=== PATIENT | female | born 1955 ===

== ENCOUNTER 2017-08-25 05:37 | Inpatient (IN) | payer OTHER ==
[~2017-08-25] VITALS: Ht 165.1 cm; Wt 72.6 kg
[2017-08-25] VITALS (14 sets, daily range): BP systolic 85–117; BP diastolic 46–76
[~2017-08-25 05:37] MED LIST: CALCIUM500 M2 PO; FISH OIL CAP1000 MG ORAL; PENNSAID112 GM TP; SERTRALINE HCL50 MG ORAL; TRAMADOL HCL50 MG ORAL; VITAMIN C500 M1 ORAL; VITAMIN D5000 UNI2 PO
[2017-08-25] MEDS ORDERED: NORCO 5-325 TA1 EAC1 ORAL (06:25)
[2017-08-25] MEDS ORDERED: Thrombin 5000 units TOPIC ONE (06:39)
[2017-08-25] MEDS ORDERED: Heparin 5000 units/ml inj ONE (06:39)
[2017-08-25] MEDS ORDERED: Surgicel 4in x 8in TOPIC ONE (06:39)
[2017-08-25] MEDS ORDERED: Lacri-Lube Opth Oint 3.5gm ONE (06:39)
[2017-08-25] MEDS ORDERED: Bupivacaine 0.5% Inj 30 ml vial INJ ONE (06:40)
[2017-08-25] MEDS ORDERED: Bacitracin 50000 Units Vial ONE (06:40)
[2017-08-25] MEDS ORDERED: Vancomycin 1gm inj IVPB ONE ×2 (06:40→12:03)
[2017-08-25] MEDS ORDERED: Ropivacaine 5mg/ml Vial 30ml INJ ONE (06:40)
[2017-08-25] MEDS ORDERED: EPINEPHrine 1mg/1ml Amp ONE (06:41)
[2017-08-25] MEDS ORDERED: Vancomycin 1 GM in D5W 275 ML IVPB ONE (07:00)
--- NOTE | 2017-08-25 07:06 | Pre-Procedure Note/Attestation ---
Pre-Procedure Note/Attestation Complete Prior to Procedure Planned Procedure: not applicable Procedure Narrative: Stage 1 Anterior Lumbar interbody fusion of L45 and L5S1 with allograft and bmp Stage 2 Posterior ferrera laminectomy/humphrey ferguson osteotomy with pedicle screw fixation L45S1 Indications for Procedure Pre-Operative Diagnosis: Herniation and back pain L45,5S1 Attestation I attest that I discussed the nature of the procedure; its benefits; risks and complications; and alternatives (and the risks and benefits of such alternatives ), prior to the procedure, with the patient (or the patient's legal publications sales representative). I attest that, if there was a reasonable possibility of needing a blood transfusion, the patient (or the patient's legal publications sales representative) was given the [place] [facility] [employer] [facility] standardized written summary, pursuant to the [place] Blood Safety Act ([place] Health and Safety Code # 1645, as amended). I attest that I re-evaluated the patient just prior to the surgery and that there has been no change in the patient's H&P, except as documented below: MARIYA GROSSMAN Aug 25, 2017 07:06
--- NOTE | 2017-08-25 07:08 | Brief Operative Note ---
Immediate Post Operative Note Operative Note Chief Complaint: Back pain and radiculopathy Pre-op Diagnosis: Herniation and back pain L45,5S1 Procedure: Stage 1 Anterior Lumbar interbody fusion of L45 and L5S1 with allograft and bmp Stage 2 Posterior ferrera laminectomy/humphrey ferguson osteotomy with pedicle screw fixation L45S1 Post-op Diagnosis: same as pre-op Findings: consistent w/pre-op dx studies Surgeon: Savannah Dental Laboratory Assistant: Tyree Additional Surgeons: Kingston Anesthesiologist: Haylee Anesthesia: general Specimen: none Complications: none Condition: stable Estimated Blood Loss: volume - 200 Drains: none - Nuvasive Peek brigade sz 14, Synthes pedicle screws x6 45mm Implant(s) used?: Yes MARIYA GROSSMAN Aug 25, 2017 07:08
[2017-08-25] MEDS ORDERED: Norco 7.5mg/325mg tab ORAL PRN ×2 (07:15)
[2017-08-25] MEDS ORDERED: Milk of Magnesia 30ml Ud ORAL PRN (07:15)
[2017-08-25] MEDS ORDERED: Metoclopramide 10mg/2ml Inj IVP PRN ×2 (07:15→10:45)
[2017-08-25] MEDS ORDERED: HYDROmorphone 1mg/ml Carpuject SUBQ PRN (07:15)
[2017-08-25] MEDS ORDERED: Naloxone 0.4mg/ml Inj IVP PRN ×2 (07:15→12:30)
[2017-08-25] MEDS ORDERED: Norco 5mg/325mg tab ORAL PRN (07:15)
[2017-08-25] MEDS ORDERED: HYDROmorphone 1mg/ml Carpuject IVP PRN (07:15)
[2017-08-25] MEDS ORDERED: Chloraseptic Spray 20mL Bottle ORAL PRN (07:15)
--- NOTE | 2017-08-25 08:24 | Anethesia Preoperative Eval ---
Anesthesia Pre-op PMH/ROS General Date of Evaluation: Aug 25, 2017 Time of Evaluation: 06:58 Anesthesiologist: Garrett ASA Score: ASA 2 Mallampati Score Class I : Soft palate, uvula, fauces, pillars visible Class II: Soft palate, uvula, fauces visible Class III: Soft palate, base of uvula visible Class IV: Only hard plate visible Mallampati Classification: Class II Surgeon: Savannah Diagnosis: Lumbar radiculopathy Surgical Procedure: Anterrior and posterior lumbar inrerbody fusion L4-L5 L5-S1 Anesthesia History: none Social History: smoking - h/o Family History: no anesthesia problems Allergies: Coded Allergies: PENICILLINS (Verified Allergy, Severe, 03/10/16) SKIN RASH Past Medical History Cardiovascular: Denies: HTN, CAD, ID, valve dz, arrhythmia, other Pulmonary: Denies: asthma, COPD, THERESE, other Gastrointestinal/Genitourinary: Reports: GERD, Denies: CRI, ESRD, other Neurologic/Psychiatric: Reports: depression/anxiety, other - chronic pain, Denies: dementia, CVA, TIA Endocrine: Denies: DM, hypothyroidism, steroids, other HEENT: Denies: cataract (L), cataract (R), glaucoma, S[place]ONGA (L), SAVOONGA (R), other Hematology/Immune: Denies: anemia, DVT, bleeding disorder, other Musculoskeletal/Integumentary: Reports: DJD, other - osteoporosis, Denies: OA, RA, DDD, edema PMH Narrative: as above PSxH Narrative: BTL ACDF Anesthesia Pre-op Phys. Exam Physician Exam Last Vital Signs Date Time Temp Pulse Resp B/P (MAP) Pulse Ox O2 Delivery O2 Flow Rate FiO2 08/25/17 07:31 97.0 71 18 117/76 97 Room Air Constitutional: NAD Neurologic: CN 2-12 intact Cardiovascular: RRR, no M/R/G Respiratory: CTA Gastrointestinal: S/NT/ND Airway Exam Mallampati Score: Class II MO: limited Neck: stiff ROM: limited Teeth: missing Dentures: no upper, no lower Anesthesia Pre-op A/P Labs see chart Studies Pre-op Studies: EKG - NSR, CXR - WNL Risk Assessment & Plan Assessment: ASA 2 . In nose smear done as a part of preoperative workout was a significant grow of MRSA culture sensitive to multiple antibiotics vancomycin included, patient will receive 2 doses of antibiotic at the beginning and the end of surgery. Surgeon is aware and confirmed. this order. Plan: GA with ETT supine and prone position neuro monitoring PONV prevention. Status Change Before Surgery: No Pre-Antibiotics Drug: Vancomycin 1 gr. Given Within 1 Hr of Incision: Yes Time Given: 08:10 LYNDON ALONZO M.D. Aug 25, 2017 08:24
[2017-08-25] MEDS: Docusate 100mg cap ORAL SCH (09:00)
[2017-08-25] MEDS ORDERED: LR 1000ml 1,000 ML IVLG SCH (10:38)
[2017-08-25] MEDS ORDERED: Hydromorphone 0.5mg/0.5ml inj IVP PRN (10:45)
[2017-08-25] MEDS ORDERED: DiphenhydrAMINE 50mg/ml Inj IVP PRN ×2 (10:45→14:45)
[2017-08-25] MEDS ORDERED: Midazolam 2mg/2ml Inj IVP PRN (10:45)
[2017-08-25] MEDS ORDERED: Meperidine 50mg/ml Inj(FOR RIGORS ONLY) IV PRN (10:45)
[2017-08-25] MEDS ORDERED: Ketorolac 30mg Inj IV PRN (10:45)
[2017-08-25] MEDS ORDERED: Acetaminophen (Non formulary) 100 ML IV ONE (12:00)
--- NOTE | 2017-08-25 14:24 | Diagnostic Imaging Report ---
Indication: Back pain Comparison: None Findings: Fluoroscopic views of the lumbar spine were obtained. 13 fluoroscopically obtained images of the lower lumbar spine during surgery. Localization followed by anterior fusion followed by posterior fusion L4-S1 noted. Impression: Intraoperative imaging
--- NOTE | 2017-08-25 14:35 | Immediate Post-Op Evaluation ---
Immediate Post-Op Evalulation Immediate Post-Op Evalulation Procedure: Anterior and posterior lumbar fusion L4-L5-S1 Date of Evaluation: Aug 25, 2017 Time of Evaluation: 14:35 IV Fluids: 2000 Blood Products: none Estimated Blood Loss: 200 Urinary Output: 300 Blood Pressure Systolic: 105 Blood Pressure Diastolic: 58 Pulse Rate: 98 Respiratory Rate: 20 O2 Sat by Pulse Oximetry: 99 Temperature (Fahrenheit): 98.5 Pain Score (1-10): 2 Nausea: No Vomiting: No Complications none Patient Status: reacts, patent, extubated, none Hydration Status: adequate LYNDON ALONZO M.D. Aug 25, 2017 14:35
[2017-08-25] MEDS ORDERED: LORazepam 1mg tab ORAL PRN ×3 (14:45→15:00)
[2017-08-25] MEDS ORDERED: PCA HYDROmorphone 1mg/ml 30 ML IV PRN (14:45)
[2017-08-25] MEDS ORDERED: PCA Education Pamphlet MISC ONE (14:45)
[2017-08-25] MEDS ORDERED: Rate Change PCA 1 Each MISC PRN (14:45)
[2017-08-25] MEDS: PCA HYDROmorphone 1mg/ml 30 ML IV PRN (16:14)
--- NOTE | 2017-08-25 16:15 | Operative Note - Dictated ---
DATE OF OPERATION: 08/25/2017 OPERATIONS: 1. Muscle sparing anterior abdominal retroperitoneal approach for anterior lumbar interbody fusions (two levels). 2. Mobilization of the left iliac artery and aorta. 3. Mobilization of the left iliac vein and ligation of iliolumbar vein. 4. Plastic closure repair of abdominal wound. CO-SURGEONS: 1. Rasheed Clements M.D. 2. Parish Nuñez M.D. ANESTHESIA: General. PREOPERATIVE DIAGNOSIS: Lumbar herniated disks, L4 to S1. POSTOPERATIVE DIAGNOSIS: Lumbar herniated disks, L4 to S1. DESCRIPTION OF PROCEDURE: Prior to surgery, the patient had received my separate informed consent form, which introduced me and explained my role in the approach for the anterior lumbar spine surgery. It also outlined the possible risks and complications, including, but not limited to hemorrhage, need for blood transfusions, wound infection, bowel or ureter injury, arterial or venous injury or thrombosis, and the remote chance of , etc. The patient read the form, signed it, and brought it back to the hospital with her today. Today, she was seen in the preoperative holding area with her son-in-law in attendance and the contents of the form were reviewed and any questions were answered. She was shown the site of the incision. She had palpable bilateral dorsalis pedis pulses. That consent was signed once again with a nurse witness and signature as well and then placed into the chart. She fully understood and wished to proceed. A preoperative vascular surgery consultation report was dictated. The patient was taken into the operating room and placed in the supine position. Using an endotracheal tube, she was placed under general anesthesia without difficulty. Her abdomen was prepped and draped in the usual sterile manner. An appropriate time-out was obtained. An oblique incision was made in the left lower quadrant beginning in the low midline and carried down through the subcutaneous tissues down to the rectus fascia. Hemostasis was achieved using electrocautery. The rectus fascia was incised with extension into the fibers of the external oblique aponeurosis. Elevation of the rectus fascia away from the anterior surface of the muscle was then carried out for a distance of approximately 4 cm cephalad. This would allow for retraction of the rectus muscle laterally in order to obtain direct anterior-posterior approach to the anterior surface of the spine. The inferior epigastric vessels were identified and preserved. The posterior fascia was then incised and carefully from the peritoneum. Laterally, the retroperitoneal space was entered down to the left psoas muscle. The left ureter was identified and protected as it was mobilized with the peritoneum more medially into the left iliac artery was identified. Deep self-retaining retractors such as [place] and [place] were utilized to hold the abdominal wall and peritoneal contents in place while further dissection was carried out. The left iliac artery was now mobilized for its entire length throughout the junction with the aorta. Deeper dissection revealed the common iliac vein, which was mobilized down to its iliolumbar branch. This branch was ligated using #0 silk with hemoclips placed and transected. Any other venous tributaries in the area were controlled with hemoclips and transected. This allowed for mobilization of the iliac vessels both anteriorly and to the right to allow proper visualization of the anterior surface of the spine. Segmental vessels lying along the anterior surface of the spine were taken between hemoclips and transected. Attention was directed below the bifurcation of the iliac vessels with several medial branches of the iliac vein were taken between hemoclips and transected. The middle sacral artery was taken between hemoclips and transected. Careful blunt dissection was carried out to preserve the sympathetic chains laterally as well as the parasympathetic plexus which lies anteriorly along the surface of the fifth lumbar vertebra. Further careful blunt dissection was utilized to expose the anterior surface of the multiple vertebral bodies and intervening multiple disc spaces. Several malleable retractor blades were now placed in all quadrants with the rectus muscle retracted laterally which allowed exposure and direct anterior-posterior approach to the anterior surface of the spine. A needle was inserted into the appropriate disc space and an x-ray was taken to verify the exposure. The spine surgeon then proceeded to perform diskectomy and fusion at the multiple levels, which will be dictated in a separate report by the spine surgeon, Dr. Nuñez. Antibiotic irrigation had been carried out. The malleable retractors were removed. The integrity of the iliac vessels were then checked to make sure that there was no tear or thrombosis of the vein and that there was adequate flow through the artery with no evidence of spasm or thrombosis. A further check for hemostasis was made and the integrity of the ureter was verified. The peritoneum was allowed to return to its anatomical location and the posterior sheath approximated using continuous running suture of 2-0 Vicryl. The anterior rectus sheath was approximated using #1 Vicryl. The subcutaneous tissues were irrigated using dilute Betadine solution as well as antibiotic solution and hemostasis noted to be achieved. Plastic closure repair of the abdominal wound was continued using 2-0 Vicryl followed by skin approximation using continuous subcuticular suture of 3-0 Monocryl. Steri-Strips were applied. Dry sterile gauze OpSite dressings were applied. The sponge, pad, needle, and instrument counts reported as correct. Estimated blood loss was 50 mL. There were no complications during this procedure. At completion of this part of the procedure, the patient had maintenance of strong palpable bilateral dorsalis pedis pulses and the pulse oximeter registered 100% on the left foot. The patient will remain in the operating room to undergo posterior instrumentation by the spine surgeon. Rasheed Clements M.D. DR: ADILIA JOB#: [id number] CC:
--- NOTE | 2017-08-25 16:45 | Consultation ---
DATE OF CONSULTATION: 08/25/2017 VASCULAR SURGERY CONSULTATION CONSULTING PHYSICIAN: Rasheed Clements M.D. HISTORY OF PRESENT ILLNESS: The patient is a 62-year-old female, who was admitted to undergo anterior lumbar interbody fusion of L4-S1 as determined by her spine surgeon, Dr. Parish Nuñez. Prior to today, the patient had received at her home my separate informed consent form, which introduced me and explained my role in the approach for the anterior lumbar spine surgery. It also outlined the possible risks and complications, including, but not limited to hemorrhage, need for blood transfusions, wound infection, bowel or ureter injury, arterial or venous injury or thrombosis, and the remote chance of , etc. The patient read the form, signed it, and brought her back to the hospital with her today. Today, she was seen in the preoperative holding area with her son-in-law in attendance and the contents of the form were reviewed and any questions were answered. She was shown the site anxiety of the incision. She had palpable bilateral dorsalis pedis pulses. She was 5 feet 5 inches tall, weighing approximately 162 pounds giving her a BMI of 27. Her hematocrit was 41 with a platelet count of 249,000. Her INR was 0.94 with a PTT of 27 seconds. That consent was signed once again with a nurse witness and signature as well, and then placed into the chart. She fully understood and wished to proceed. There were no contraindications and we would proceed with the proposed operation. Rasheed Clements M.D. DR: DORIS JOB#: [id number] CC:
[2017-08-25] MEDS: PCA shift volume MISC SCH (19:00)
[2017-08-25] MEDS: Dexamethasone 4mg/ml vial IVP SCH (20:25)
[2017-08-25] MEDS: NS w/KCl 20mEq 1,000 ML IV SCH (20:25)
[2017-08-26 00:18] VITALS: BP 97/63
[2017-08-26 04:00] VITALS: BP 93/59
[2017-08-26] MEDS: NS w/KCl 20mEq 1,000 ML IV SCH ×2 (05:47→17:36)
[2017-08-26] MEDS: PCA shift volume MISC SCH ×2 (07:00→19:01)
[2017-08-26] MEDS: Dexamethasone 4mg/ml vial IVP SCH ×3 (07:25→12:04)
[2017-08-26 08:00] VITALS: BP 101/58
[2017-08-26] MEDS: Docusate 100mg cap ORAL SCH ×3 (09:00→17:36)
[2017-08-26 12:49] VITALS: BP 103/59
--- NOTE | 2017-08-26 13:30 | Consultation ---
History of Present Illness General Date patient seen: Aug 26, 2017 Time patient seen: 13:29 Chief Complaint: Intractable back pain and radiculopathy Referring physician: Dr. Nuñez Reason for Consultation: susan klein Present Illness HPI 62y/o female with pmh of intractable back pain 2/2 lumbar disc herniation who is now s/p stage 1 Anterior Lumbar interbody fusion of L45 and L5S1 with allograft and bmp Stage 2 Posterior ferrera laminectomy/humphrey ferguson osteotomy with pedicle screw fixation L45S1 yesterday POD#1. Postop pain appears well controlled. Denies f/c, n/v, d/c, chest pain, SOB, abd pain. Allergies: Coded Allergies: PENICILLINS (Verified Allergy, Severe, 03/10/16) SKIN RASH Medication History Scheduled Ascorbic Acid* (Vitamin C*), 500 MG ORAL DAILY, (Reported) Calcium Carbonate (Calcium), 500 MG PO BID, (Reported) Cholecalciferol (Vitamin D3) (Vitamin D), 5,000 UNIT PO 2XW, (Reported) Fish Oil (Fish Oil 1,000 mg Capsule), 1,000 MG ORAL DAILY, (Reported) Scheduled PRN Hydrocodone Bit/Acetaminophen 10-325* ([place] 10-325*), 1 TAB ORAL Q8HR PRN for For Pain, (Reported) Hydrocodone Bit/Acetaminophen 5-325* ([place] 5-325 Tablet*), 1 TAB ORAL Q4H PRN for For Pain, (Reported) Discontinued Medications Diclofenac Sodium (Pennsaid), 112 GM TP NEEDED, (Reported) Discontinued Reason: Pt stopped taking med Sertraline Hcl* (Zoloft*), 50 MG ORAL DAILY, (Reported) Discontinued Reason: Pt stopped taking med Patient History History Provided By: Patient, Medical Record Healthcare decision maker N Resuscitation status Full Code Advanced Directive on File No Past Medical/Surgical History Past Medical/Surgical History: (1) Anxiety (2) Lumbar disc herniation Family History Family History: (1) Family history in first degree relatives is unremarkable Social History Social History: (1) No significant social history Review of Systems Constitutional: Reports: no symptoms Eye: Reports: no symptoms ENT: Reports: no symptoms Respiratory: Reports: no symptoms Cardiovascular: Reports: no symptoms Gastrointestinal: Reports: no symptoms Genitourinary: Reports: no symptoms Musculoskeletal: Reports: joint pain, muscle pain Skin: Reports: no symptoms Psychiatric: Reports: no symptoms Neurological: Reports: no symptoms Endocrine: Reports: no symptoms Hematologic/Lymphatic: Reports: no symptoms All Other Systems: negative except mentioned in HPI Physical Exam Physical Exam Narrative General: alert, cooperative, no distress, appears stated age Head: normocephalic, without obvious abnormality, atraumatic Eyes: conjunctivae/corneas clear. PERRL, EOM's intact Throat: lips, mucosa, and tongue normal. MMM Neck: supple, symmetrical, trachea midline, and no JVD Lungs: clear to auscultation bilaterally Heart: regular rate and rhythm, S1, S2 normal, no murmur, click, rub or gallop Abdomen: soft, non-tender, non-distended, bowel sounds normal; no masses or organomegaly Extremities: extremities normal, atraumatic, no cyanosis or edema Pulses: 2+ and symmetric Skin: skin color, texture, turgor normal; no rashes or lesions Dressing c/d/i Neurologic: grossly normal, no focal deficits Last 24 Hour Vital Signs Date Time Temp Pulse Resp B/P (MAP) Pulse Ox O2 Delivery O2 Flow Rate FiO2 08/26/17 12:49 98.0 85 20 103/59 97 Room Air 08/26/17 12:00 18 08/26/17 08:00 18 08/26/17 08:00 98.0 93 18 101/58 95 Room Air 08/26/17 04:00 97.8 83 18 93/59 97 Room Air 08/26/17 04:00 18 08/26/17 00:18 97.6 79 19 97/63 94 Nasal Cannula 4.0 08/26/17 00:00 18 08/25/17 20:41 97.2 85 19 98/60 100 Room Air 08/25/17 20:00 18 08/25/17 18:35 17 08/25/17 17:45 97.0 73 16 100/60 98 Nasal Cannula 4.0 08/25/17 17:35 16 08/25/17 17:05 16 08/25/17 16:50 16 08/25/17 16:45 97.0 91 17 104/61 97 Nasal Cannula 4.0 08/25/17 16:30 97.2 86 17 107/54 100 Nasal Cannula 3.0 08/25/17 16:30 16 08/25/17 16:15 85 14 105/52 100 Nasal Cannula 3.0 08/25/17 16:15 18 08/25/17 16:00 14 08/25/17 16:00 90 15 101/50 100 Nasal Cannula 3.0 08/25/17 15:45 82 17 95/53 100 Nasal Cannula 3.0 08/25/17 15:45 16 08/25/17 15:30 91 15 98/50 100 Nasal Cannula 3.0 08/25/17 15:15 92 14 92/52 100 Nasal Cannula 3.0 08/25/17 15:00 88 17 90/54 100 Simple Mask 6.0 08/25/17 14:45 89 13 85/50 100 Simple Mask 6.0 08/25/17 14:35 98 20 99 08/25/17 14:30 97 15 86/52 100 Simple Mask 6.0 08/25/17 14:25 99.0 110 22 98/46 100 Simple Mask 6.0 Intake and Output 08/26/17 08/27/17 19:00 07:00 Intake Total 840 ml Balance 840 ml Intake Oral 240 ml IV Total 600 ml Height (Feet): 5 Height (Inches): 5.00 Weight (Pounds): 160 Medications Current Medications Medications (Trade) Dose Ordered Sig/Freddy Route PRN Reason Start Time Stop Time Status Last Admin Dose Admin Acetaminophen (Tylenol) 650 mg Q4H PRN ORAL headache or temp>101 08/25/17 07:15 09/24/17 07:14 Carisoprodol (Soma) 350 mg TIDPRN PRN ORAL SPASM 08/25/17 07:15 09/24/17 07:14 08/26/17 04:19 Cetylpyridinium Chloride (Cepacol) 1 lozenge EVERY 2 HOURS PRN LENNOX To Patient Comfort 08/25/17 07:15 09/24/17 07:14 Diphenhydramine HCl (Benadryl) 25 mg Q6H PRN IVP Itching/Pruritis 08/25/17 14:45 08/27/17 14:44 Docusate Sodium (Colace) 100 mg TWICE A DAY ORAL 08/25/17 09:00 09/24/17 08:59 08/26/17 09:06 Hydromorphone HCl 30 ml @ 0 mls/hr Q24H PRN IV For Pain 08/25/17 15:00 08/27/17 14:59 08/25/17 16:14 Hydromorphone HCl (Dilaudid) 1 mg Q2H PRN IVP Moderate Pain (Pain Scale 4-6) 08/25/17 14:45 08/27/17 14:44 Hydromorphone HCl (Dilaudid) 2 mg Q3H PRN SUBQ Severe Pain (Pain Scale 7-10) 08/25/17 15:00 08/27/17 14:59 08/26/17 05:38 Lorazepam (Ativan) 1 mg Q4H PRN ORAL Muscle Spasm 08/25/17 14:45 08/27/17 14:44 Magnesium Hydroxide (Mom) 30 ml QIDPRN PRN ORAL Constipation 08/25/17 07:15 09/24/17 07:14 Metoclopramide HCl (Reglan) 10 mg Q6H PRN IVP Nausea & Vomiting 08/25/17 07:15 09/24/17 07:14 Miscellaneous Medication (BARISTA Rate Change) 1 ea DAILYPRN PRN MISC rate change 08/25/17 14:45 08/27/17 14:44 Miscellaneous Medication (BARISTA shift volume) 1 ea Q12HR@0700,1900 MISC 08/25/17 19:00 08/27/17 18:59 08/26/17 07:00 Naloxone HCl (Narcan) 0.1 mg Q1M PRN IVP RR<10/min OR SBP<90 mmHg 08/25/17 12:30 08/27/17 12:29 Ondansetron HCl (Zofran) 4 mg Q6H PRN IVP Nausea & Vomiting 08/25/17 14:45 08/27/17 14:44 Phenol/Menthol (Chloraseptic) 1 spray Q3H PRN ORAL Patient Comfort for Sore Throa 08/25/17 07:15 09/24/17 07:14 Prochlorperazine (Compazine) 10 mg Q6H PRN IVP Nausea & Vomiting 08/25/17 07:15 09/24/17 07:14 Sodium Chloride 1,000 ml @ 100 mls/hr Q10H IV 08/25/17 20:00 09/24/17 19:59 08/26/17 05:47 Temazepam (Restoril) 7.5 mg HSPRN PRN ORAL Insomnia 08/25/17 14:45 08/27/17 14:44 Assessment/Plan Problem List: (1) Lumbar disc herniation ICD Codes: M51.26 - Other intervertebral disc displacement, lumbar region SNOMED: 281428968 (2) Anxiety ICD Codes: F41.9 - Anxiety disorder, unspecified SNOMED: 02738460 Status: stable Assessment/Plan Appreciate surgery rec's s/p stage 1 Anterior Lumbar interbody fusion of L45 and L5S1 with allograft and bmp Stage 2 Posterior ferrera laminectomy/humphrey ferguson osteotomy with pedicle screw fixation L45S1 on 08/25/17 Post operative recommendations include: - encourage mobilization/ambulation - encourage incentive spirometry to optimize pulmonary hygiene - DVT/GI prophylaxis as appropriate--SCDs - PT/OT - pain control, supportive care, bowel regimen - DC planning D/w pt, RN, SW/CM, surgery regarding mgmt and dispo Keith Cabrera M.D. Aug 26, 2017 13:30
[2017-08-26 16:00] VITALS: BP 99/63
[2017-08-26 20:45] VITALS: BP 93/59
[2017-08-26] MEDS: PCA HYDROmorphone 1mg/ml 30 ML IV PRN (21:32)
[2017-08-27 00:21] VITALS: BP 114/67
[2017-08-27] MEDS: NS w/KCl 20mEq 1,000 ML IV SCH (02:00)
[2017-08-27 04:41] VITALS: BP 101/66
[2017-08-27] MEDS ORDERED: Neostigmine 1mg/ml 10ml Inj ONE (07:00)
[2017-08-27] MEDS ORDERED: Zemuron 50mg/5ml Inj IV ONE (07:00)
[2017-08-27] MEDS ORDERED: Propofol 200mg/20ml IV ONE (07:00)
[2017-08-27] MEDS ORDERED: NS Irrig 1000ml ONE (07:00)
[2017-08-27] MEDS ORDERED: Midazolam 2mg/2ml Inj ONE ×2 (07:00)
[2017-08-27] MEDS ORDERED: Ketorolac 30mg Inj ONE (07:00)
[2017-08-27] MEDS ORDERED: NS 275ml ONE (07:00)
[2017-08-27] MEDS ORDERED: Morphine Sulfate 10mg/ml Inj ONE (07:00)
[2017-08-27] MEDS ORDERED: LR 1000ml ONE (07:00)
[2017-08-27] MEDS ORDERED: Glycopyrrolate 0.2mg/ml 1ml Vial ONE (07:00)
[2017-08-27] MEDS ORDERED: Propofol 1,000mg/ 100ml btl IV ONE (07:00)
[2017-08-27] MEDS ORDERED: fentaNYL 100 mcg/2 mL IV ONE (07:00)
[2017-08-27] MEDS ORDERED: Sterile Water Irrig 1000ml IRRIG ONE (07:00)
[2017-08-27] MEDS: PCA shift volume MISC SCH (07:04)
[2017-08-27 08:37] VITALS: BP 104/64
[2017-08-27] MEDS ORDERED: Tums 500mg ORAL PRN (08:45)
[2017-08-27] MEDS: Docusate 100mg cap ORAL SCH (09:24)
[2017-08-27] MEDS ORDERED: NORCO 10-325 T1 EACH ORAL (12:28)
--- NOTE | 2017-08-28 01:00 | Operative Note - Dictated ---
DATE OF OPERATION: 08/25/2017 Stage 1 of 2. SURGEON: Parish Nuñez M.D., Orthopaedic Spine Surgeon [facility] SURGEON: Rasheed Clements M.D. ANESTHESIA: General endotracheal anesthesia. PREOPERATIVE DIAGNOSES: 1. Intractable back pain. 2. Intractable leg pain. 3. Worsening radiculopathy. 4. Weakness. 5. Herniated nucleus pulposus, L4-5 and L5-S1 with herniation. 6. Neural foraminal stenosis, L4-5 and L5-S1 with herniation. POSTOPERATIVE DIAGNOSES: 1. Intractable back pain. 2. Intractable leg pain. 3. Worsening radiculopathy. 4. Weakness. 5. Herniated nucleus pulposus, L4-5 and L5-S1 with herniation. 6. Neural foraminal stenosis, L4-5 and L5-S1 with herniation. PROCEDURES PERFORMED: 1. Radical anterior lumbar intervertebral L4-5 and L5-S1 discectomy. 2. Anterior lumbar interbody fusion using NuVasive PEEK cage size 14 mm and bone morphogenetic protein and Olu putty. 3. Anterior lumbar plating and fixation at L4-5 and L5-S1 using #8 screws of 25 mm length. 4. Anterior retroperitoneal exposure. 5. Supervision and interpretation of intraoperative fluoroscopy. 6. Supervision and interpretation of somatosensory-evoked potential and free running EMG monitoring. TOTAL BLOOD LOSS: 100 mL COMPLICATIONS: None. INDICATIONS FOR THE PROCEDURE: The patient is a 62-year-old female who presents for intractable back pain and radiculopathy which is well documented in our clinical chart and records. We had a long discussion with [facility] regarding definitive surgical treatment options. We had a long discussion with the patient regarding the risks, alternatives, and benefits of procedure. Our description of the risks included a discussion in person as well as a signed consent which detailed all pertinent risks and the procedure itself. Briefly, our discussion included but was not limited to infection, bleeding, pseudarthrosis, spinal cord injury, neurovascular injury, dural tear, CSF leak, neuropathy, paralysis, permanent weakness/drop foot, paresthesias, blindness, palsy and weakness. The patient understood there may be a need for revision surgery or additional procedures. Approach-related complications including dysphonia, dysphagia, blindness, permanent vocal cord and neural injury, hematoma, swallowing and breathing difficulty; medical complications including liver, kidney, shock, and cardiopulmonary failure; anesthesia complications including , swelling, damage to the musculature, larynx , esophagus, trachea, blood vessels and muscles and lungs during this surgical procedure. Injury to deeper structures may be temporary or permanent. The patient understood these and elected to proceed. A written and verbal consent was given. We discussed the pros and cons of all the alternatives. We discussed the uncertainties associated with the decision. Afterwards, I assessed the patients understanding and explored their preferences. All questions were answered and no guarantees were given. Medical clearance was obtained prior to surgery. OPERATIVE FINDINGS: Broad-based disc herniations at L4-5 and L5-S1 were encountered, which encroached on the thecal sac and neural foraminal elements therein. These L4-5 and L5-S1 discs were acute in nature and not calcified. It was mobile and free floating and resected easily. There was also neural foraminal stenosis at L4-5 and L5-S1. DESCRIPTION OF PROCEDURE: Under the benefit of general endotracheal anesthesia and with the assistance of the entire operative team, the patient was moved from the rney onto the operative table in the supine position on a radiolucent frame. The head was secured and positioned appropriately. Bilateral arms were secured with Gel Pads and foam and all bony prominences were padded. The bilateral lower extremity SCD and LISA hose were placed for DVT prophylaxis. A surgical timeout was called which corroborated our planned procedure. Preoperative antibiotics were administered within 30 minutes of the incision for prophylaxis. Using lateral radiography, the operative levels were delineated. An incision was marked based on our interpretation of lateral radiography and afterwards the body was prepped and draped in the usual sterile manner. The family was notified that we were ready to commence surgery and were called in the waiting room hourly for updates. An incision was based on our lateral fluoroscopic image to center the incision at the L4-5 and L5-S1 interspace. The wound was prepped and draped in the usual sterile fashion. Using a scalpel, a standard retroperitoneal exposure was performed by our vascular surgeon Dr.Robert Clements and this is delineated in a separate operative note. After appropriate exposure at the L5-S1 disc space, we next turned our attention towards our radical discectomy. This was performed in standard fashion first beginning with a gentle mobilization of all superficial soft tissue overlying the disc space with Kittners. After this was performed we marked our midline and confirmed our disc space on AP and lateral fluoroscopy. Next, using a 10 blade long-handled scalpel, the disc was resected from the endplates in a box discectomy technique. Next using Burton elevators the disc was mobilized off each endplate. After this, using a large Leksell rongeurs, the entire disc was removed from the intervertebral space. All residual disc and cartilaginous endplates were resected using a combination of small and medium curettage, pituitaries, size 4 and size 6 Kerrison rongeurs. Next, the endplates were distracted in a parallel fashion using the Vincent md allergy immunology and a 7.5 Thandle. At this point the PLL was resected using a small curette and a Kerrison 4 rongeur. Next the endplates were resected down to bleeding subchondral bone using a ring and box curette. For any residual bleeding which we encountered at this point, this was maintained and controlled with a combination of FloSeal, Gelfoam and bipolar cautery. Afterwards, Tisseel was used to seal the discectomy site dorsally. Next I then trialed the interspace for height, width and depth. This was confirmed on fluoroscopy and, once satisfied with our fit, we loaded and inserted a NuVasive PEEK cage size 14 mm with bone morphogenetic protein and with allograft Olu bone under AP and lateral fluoroscopy. AP and lateral fluoroscopy confirmed excellent placement at the L5-S1 interspace. Afterwards, we turned our attention towards plating from the L5-S1 NuVasive Brigade Interlock system. This anterior lumbar plating and fixation at L5-S1 using #8 screws of 25 mm length. Final radiographs confirmed appropriate placement of all hardware, screws and our PEEK cages along with a amish of the lumbar lordosis. Afterwards, Tisseel was used to seal the discectomy site ventrally. FloSeal and Zosyn antibiotics were placed directly on the anterior fusion site. Second level: L4-5, After appropriate exposure at the L4-5 disc space we next turned our attention towards our radical discectomy. This was performed in standard fashion first beginning with a gentle mobilization of all superficial soft tissue overlying the disc space with Kittners. After this was performed, we marked our midline and confirmed our disc space on AP and lateral fluoroscopy. Next using a 10 blade long-handled scalpel, the disc was resected from the endplates in a box discectomy technique. Next, using Burton elevators, the disc was mobilized off each endplate. After this, using a large Leksell rongeurs, the entire disc was removed from the intervertebral space. All residual disc and cartilaginous endplates were resected using a combination of small and medium curettage, pituitaries, size 4 and size 6 Kerrison rongeurs. Next the endplates were distracted in a parallel fashion using the Vincent md allergy immunology and a 7.5 Thandle. At this point the PLL was resected using a small curette and a Kerrison 4 rongeur. Next the endplates were resected down to bleeding subchondral bone using a ring and box curette. For any residual bleeding which we encountered at this point, this was maintained and controlled with combination of FloSeal, Gelfoam and bipolar cautery. Afterwards, Tisseel was used to seal the discectomy site dorsally. Next, I then trialed the interspace for height , width and depth. This was confirmed on fluoroscopy and once satisfied with our fit, we loaded and inserted a NuVasive PEEK cage size 14 mm with bone morphogenetic protein with allograft Olu bone under AP and lateral fluoroscopy. AP and lateral fluoroscopy confirmed excellent placement at the L4-5 interspace. Afterwards, we turned our attention towards plating from the NuVasive Brigade Interlock system. This anterior lumbar plating and fixation at L4-5 using a total of 8 screws of 25 mm length. Final radiographs confirmed appropriate placement of all hardware, screws and our PEEK cages along with a amish of the lumbar lordosis. Afterwards, Tisseel was used to seal the discectomy site ventrally. FloSeal and Zosyn antibiotics were placed directly on the anterior fusion site. The wounds were copiously irrigated with antibiotic impregnated saline. Afterwards, FloSeal was placed to address residual bleeding. Powdered antibiotics were directly poured into the wound to provide for direct antibiosis. Next, I turned my attention to closure. Fascial closure was performed with 1-0 Vicryl suture. Subcutaneous tissues were reapproximated with 2-0 Vicryl. The superficial subcutaneous skin was closed with a running Monocryl and Dermabond. Dressings consisted of Tegaderm and 4 x 4 gauze. The patient tolerated the procedure well and after discussion with our vascular surgeon and our anesthesiologist, we made the determination to proceed with stage 2 of 2 our posterior based approach. The details of stage 1 of the surgery were related to the patients family/representatives upon the conclusion of the procedure in the family waiting room. Stage 2 of 2. DATE OF OPERATION: Same SURGEON: Parish Nuñez M.D., Orthopaedic Spine Surgeon [facility] SURGEON: William Onofre M.D. ANESTHESIA: General endotracheal anesthesia. PREOPERATIVE DIAGNOSES: 1. Intractable back pain. 2. Intractable leg pain. 3. Worsening radiculopathy. 4. Weakness. 5. Herniated nucleus pulposus, L4-5 and L5-S1 with herniation. 6. Neural foraminal stenosis, L4-5 and L5-S1. POSTOPERATIVE DIAGNOSES: 1. Intractable back pain. 2. Intractable leg pain. 3. Worsening radiculopathy. 4. Weakness. 5. Herniated nucleus pulposus, L4-5 and L5-S1 with herniation. 6. Neural foraminal stenosis, L4-5 and L5-S1. PROCEDURES PERFORMED: 1. Ayala laminectomy/Cross-Horowitz osteotomy, and complete facetectomy at L4-5 and L5-S1. 2. L4-5 and L5-S1 posterolateral fusion using allograft bone, local autograft, and residual bone morphogenetic protein. 3. Percutaneous pedicle screw fixation at L4, L5, and S1 using a total of 6 Synthes screws of 45 mm length of 6 mm diameter. 4. Confirmation of pedicle screws placement using neural monitoring. 5. Use of intraoperative microscope. 6. Supervision and interpretation of intraoperative fluoroscopy. 7. Supervision and interpretation of somatosensory-evoked potential and free running EMG monitoring. TOTAL BLOOD LOSS: 100 mL COMPLICATIONS: None. INDICATIONS FOR THE PROCEDURE: The patient is a 62-year-old female who presents for stage 2 in regards to their intractable back pain and radiculopathy. This operative note details the second stage of our surgery. Prior to surgery we had a long discussion with [facility] regarding definitive surgical treatment options. We had a long discussion with the patient regarding the risks, alternatives, and benefits of procedure. Our description of the risks included a discussion in person as well as a signed consent which detailed all pertinent risks and the procedure itself. Briefly, our discussion included but was not limited to infection, bleeding, pseudarthrosis, spinal cord injury, neurovascular injury, dural tear, CSF leak, neuropathy, paralysis, permanent weakness/drop foot, paresthesias, blindness, palsy and weakness. The patient understood there may be a need for revision surgery or additional procedures. Approach related complications including dysphonia, dysphagia, blindness, permanent vocal cord and neural injury, hematoma, swallowing and breathing difficulty; medical complications including liver, kidney, shock, and cardiopulmonary failure; anesthesia complications including , swelling, damage to the musculature, larynx, esophagus, trachea, blood vessels and muscles and lungs during this surgical procedure. Injury to deeper structures may be temporary or permanent. The patient understood these and elected to proceed. A written and verbal consent was given. We discussed the pros and cons of all the alternatives. We discussed the uncertainties associated with the decision. Afterwards I assessed the patients understanding and explored their preferences. All questions were answered and no guarantees were given. This now delineates the second stage of the procedure. OPERATIVE FINDINGS: A significant amount of neural foraminal encroachment along the thecal sac and neural foraminal elements therein. This neural foraminal stenosis at L4-5 and L5-S1 was more than appreciated on the MRI. DESCRIPTION OF PROCEDURE: Under the benefit of general endotracheal anesthesia and with the assistance of the entire operative team, the patient was moved from the radiolucent operative table in the prone position onto a Noah frame. The head was secured and positioned appropriately. Bilateral arms were secured with Gel Pads and foam and all bony prominences were padded. The bilateral lower extremity SCD and LISA hose we replaced for DVT prophylaxis. A surgical timeout was called which corroborated our planned procedure. Preoperative antibiotics were administered within 30 minutes of the incision for prophylaxis. Using lateral radiography, the operative levels were delineated. An incision was marked based on our interpretation of anterior posterior and lateral radiography and afterwards the body was prepped and draped in the usual sterile manner. The family was notified that we were ready to commence surgery and were called in the waiting room hourly for updates. An incision was based on our anterior posterior and lateral fluoroscopic image to center the incision at the L4 5 S1 interspace. The wound was prepped and draped in the usual sterile fashion. Using a scalpel, a midline incision was made and the subcutaneous tissue was mobilized so that within the fascia two Shae based incisions were made, one incision on each side focusing on her pedicles at L4-5 and L5-S1 through a percutaneous stab wound approach. All pedicles were cannulated in the exact same fashion for each level. This was performed in the following manner. The second incision was made slightly off midline and geared towards her L4-5 and L5-S1 interspace approached. Using Jamshidi needles under direct AP and lateral fluoroscopic visualization I approached the L4-5 and L5-S1 pedicles with Jamshidi needles making sure to leave clearance along the medial pedicle boundary/wall, and next we advanced our bilateral pedicle screw entry points under AP and lateral fluoroscopy at both our pedicles bilaterally. Next, percutaneous screws were loaded on the left hand side and on the contralateral side, bilaterally. Synthes Screws 45x6 were inserted in percutaneous fashion and afterwards these screws were stimulated. Next, a junaid was lordosed and placed percutaneously through the incision. Next, we turned our attention to our Cross-Horowitz type osteotomy, facetectomy and decompression. This was performed at each level in the exact same fashion. Based on AP and lateral fluoroscopy, we centered this incision over the facet joints at L4,5,and S1 of the contralateral side. This was taken down through the skin and subcutaneous tissues until the overlying pars facet joints of L4-5 and L5-S1 were visualized under microscopic visualization. There was severe pressure on this neural foramina as palpated with the Yusuf dental and a Ojeda ball probe. The pars was then visualized on the contralateral side and this was carefully resected along with the lamina and superior articular process using a Tachyus Satya AM8 drill bit. This was completely resected using a Cross-Horowitz type osteotomy and medial laminar removal and facetectomy. There was a significant amount of bleeding which we encountered at this point and this was maintained and controlled with a combination of FloSeal, Gelfoam and bipolar cautery. After complete resection of the facet joints, we noticed the lateral thecal sac margin and the neural elements . Next, I turned my attention to the stimulation of pedicle screws. All pedicle screws were stimulated with somatosensory evoked potentials ranging over 20 milliampere with no response. Afterwards percutaneous rods from the Synthes pedicle screw system were inserted and placed percutaneously and locking caps were placed. Final radiographs confirmed appropriate placement of all hardware, screws and our PEEK cages along with a amish of the lumbar lordosis. The wounds were copiously irrigated with antibiotic impregnated saline. Afterwards, FloSeal was placed to address residual bleeding. Powdered antibiotics were directly poured into the wound to provide for direct antibiosis. Next I turned my attention to closure. Fascial closure was performed with 1-0 Vicryl suture. Subcutaneous tissues were reapproximated with 2-0 Vicryl. The superficial subcutaneous skin was closed with a running Monocryl and Dermabond. Dressings consisted of Tegaderm and 4 x 4 gauze. The patient tolerated the procedure well and will now be admitted to the spine floor for further observation. The details of the entire surgery were related to the patients family/representatives upon the conclusion of the procedure in the family waiting room. Parish Nuñez M.D. DR: CINDY JOB#: [id number] CC: YANIV
--- NOTE | 2017-08-29 08:10 | Discharge Summary ---
Discharge Summary Hospital Course Date of Admission Aug 25, 2017 at 05:37 Date of Discharge Aug 27, 2017 at 12:56 Admitting Diagnosis Herniated nucleus pulposus, L4-5 and L5-S1 with herniation. Neural foraminal stenosis, L4-5 and L5-S1 with herniation. Reason for Hospitalization: elective surgery HPI 62-year-old female presented for intractable back pain and radiculopathy Symptoms did not improve with conservative treatment Patient was admitted for elective surgery Consultations dr Chicas -IM Procedures s/p 10/[address] Nuñez 1. Radical anterior lumbar intervertebral L4-5 and L5-S1 discectomy. 2. Anterior lumbar interbody fusion using NuVasive PEEK cage size 14 mm and bone morphogenetic protein and Creighton putty. 3. Anterior lumbar plating and fixation at L4-5 and L5-S1 using #8 screws of 25 mm length. 4. Anterior retroperitoneal exposure. 5. Supervision and interpretation of intraoperative fluoroscopy. 6. Supervision and interpretation of somatosensory-evoked potential and free running EMG monitoring. s/p 08/25- by dr Clements 1. Muscle sparing anterior abdominal retroperitoneal approach for anterior lumbar interbody fusions (two levels). 2. Mobilization of the left iliac artery and aorta. 3. Mobilization of the left iliac vein and ligation of iliolumbar vein. 4. Plastic closure repair of abdominal wound. Hospital Course s/p surgery course of recovery uneventful neurovascular intact pain management dressing C/D/I PT /OT eval and Rx OOB and ambulate IS while in the bed DVT prophylaxis with SCD diet as tolerated , tolerated voided freely bowel regimen surgeon cleared for discharge fup with surgeon as outpatient as directed by surgeon DISCHARGE DIAGNOSIS: 1. Intractable back pain. 2. Intractable leg pain. 3. Worsening radiculopathy. 4. Weakness. 5. Herniated nucleus pulposus, L4-5 and L5-S1 with herniation. 6. Neural foraminal stenosis, L4-5 and L5-S1 with herniation. 7. s/p 08/25 Anterior and posterior lumbar fusion L4-L5-S1 Discharge Medications Continued Medications: Ascorbic Acid* (Vitamin C*) 500 Mg Tablet 500 MG ORAL DAILY, #30 TAB 0 Refills Calcium Carbonate (Calcium) 500 Mg Tablet 500 MG PO BID, TAB Cholecalciferol (Vitamin D3) (Vitamin D) 5,000 Unit Capsule 5000 UNIT PO 2XW, CAP Fish Oil (Fish Oil 1,000 mg Capsule) 1,000 Mg Cap 1000 MG ORAL DAILY, CAP Hydrocodone Bit/Acetaminophen 10-325* ([place] 10-325*) 1 Each Tablet 1 TAB ORAL Q8HR PRN for For Pain, #90 TAB 0 Refills PRN PAIN Discharge Condition Upon Discharge: stable Discharge Disposition Patient was discharged to Home (01) Discharge Diagnoses: Discharge Instructions Discharge Instructions Special Instructions I have been assigned to complete a D/C Summary on this account. I was not involved in the patient management Perri Aly NP (Vanchtein) Aug 29, 2017 08:10
[2017-08-29 08:14] VITALS: BP 170/69
--- NOTE | 2017-08-29 08:14 | 48 Hour Post Anesthesia Eval ---
Post Anesthesia Evaluation Procedure: Anterior and posterior lumbar fusion L4-L5-S1 Date of Evaluation: Aug 29, 2017 Time of Evaluation: 08:00 Blood Pressure Systolic: 170 0: 69 Pulse Rate: 49 Respiratory Rate: 14 Temperature (Fahrenheit): 98 O2 Sat by Pulse Oximetry: 99 Airway: patent Nausea: No Vomiting: No Hydration Status: adequate Mental Status/LOC: patient returned to baseline Follow-up care needed: patient intructions given Vincent Cagle M.D. Aug 29, 2017 08:14
== END 2017-08-27 12:56 | disposition home or self-care (01) | DRG 460 ==
LOC: SDSOVERFLO 05:37 → 3E 17:00
DX: M51.16 Intervertebral disc disorders with radiculopathy, lumbar region (principal); F41.9 Anxiety disorder, unspecified; M48.061 Spinal stenosis, lumbar region without neurogenic claudication; M51.17 Intervertebral disc disorders with radiculopathy, lumbosacral region; M48.07 Spinal stenosis, lumbosacral region; M81.0 Age-related osteoporosis without current pathological fracture
CPT/HCPCS: 36415; 72020; 76001; 86850; 86900; 86901; 87081; 94003; 94150; J2250; J2405; J2710